=== PATIENT | male | born 1960 | race Caucasian/White ===

== ENCOUNTER 2016-07-25 09:46 | Day surgery (SDC) | payer BC ==
[2016-07-22 15:29] VITALS: BMI 30.2
[~2016-07-25 09:46] MED LIST: LACTATED RINGERS 1,000 ML IV SCH
[2016-07-25] MEDS ORDERED: LACTATED RINGERS 1,000 ML IV ONE (10:02)
[2016-07-25] MEDS ORDERED: LIDOCAINE 1% 20 ML VIAL (10MG/ML) FOR IV START INTRADERMA ONE (10:02)
[2016-07-25 10:08] VITALS: TEMP 98
[2016-07-25] MEDS ORDERED: LIDOCAINE 1% INJ 10MG/ML (20 ML MDV) ONE (10:23)
[2016-07-25] MEDS ORDERED: MIDAZOLAM 2 MG/2 ML VIAL ONE (10:23)
[2016-07-25] MEDS ORDERED: PROPOFOL 10 MG/ML 20 ML VIAL IV ONE (10:23)
--- NOTE | 2016-07-25 10:38 | P.GSHP ---
History of Present Illness H&P Date: 07/25/16 Chief Complaint: Screening colonoscopy This a 55-year-old male referred from Dr. Reggie Corona. Patient presents for screening colonoscopy. - Constitutional Constitutional: Reports as per HPI Past Medical History Past Medical History: Hypertension, Pneumonia, Seizure Disorder Additional Past Medical History / Comment(s): seizures as child, recent admission for pneumonia 05/2016, tinnitus, not currently taking BP medication- "ran out" History of Any Multi-Drug Resistant Organisms: None Reported Past Surgical History: Hernia Repair, Orthopedic Surgery, Tonsillectomy Additional Past Surgical History / Comment(s): rt knee surgery x 3(arthroscopy, ACL), thoracentesis/chest tube 06/03/16-06/09/16, inguinal hernia repair Past Anesthesia/Blood Transfusion Reactions: No Reported Reaction Past Psychological History: Anxiety Smoking Status: Former smoker Past Alcohol Use History: Occasional Additional Past Alcohol Use History / Comment(s): quit smoking 02/2015, smoked for 25 yrs, 2 PPD Past Drug Use History: Marijuana Additional Drug Use History / Comment(s): medical card for use - Past Family History Father Additional Family Medical History / Comment(s): states dad of brain aneursym. Unknown how mom Mother Family Medical History: No Reported History Medications and Allergies Home Medications Medication Instructions Recorded Confirmed Type Melatonin 5 mg PO HS PRN 07/22/16 07/25/16 History Allergies Allergy/AdvReac Type Severity Reaction Status Date / Time No Known Allergies Allergy Verified 07/22/16 14:57 Surgical - Exam Vital Signs Temp Pulse Resp BP Pulse Ox 98.0 F 89 18 154/90 98 07/25/16 10:03 07/25/16 10:03 07/25/16 10:03 07/25/16 10:03 07/25/16 10:03 - General well developed, no distress - Eyes PERRL - ENT normal pinna - Neck no masses - Respiratory normal expansion - Cardiovascular Rhythm: regular - Abdomen Abdomen: soft Assessment and Plan Plan: We'll perform screening colonoscopy.
--- NOTE | 2016-07-25 10:49 | P.OP ---
Date of Procedure: 07/25/16 Preoperative Diagnosis: Screening colonoscopy Postoperative Diagnosis: External hemorrhoids Sigmoid colon inflammation suspicious for diverticulitis biopsy pending Procedure(s) Performed: Colonoscopy Anesthesia: MAC Surgeon: Quique Correa Pathology: other (Sigmoid colon biopsied) Condition: stable Disposition: PACU Description of Procedure: Patient's placed on the endoscopy table in the lateral position. He received IV sedation. Digital rectal exam was performed which revealed external hemorrhoids. The flexible colonoscope was then placed patient anus and passed throughout the entire colon. The ileocecal valve was visualized. The cecum, ascending and transverse colon appeared normal. In the descending; there was diverticular changes. Within the sigmoid colon there is evidence of inflammation. There is mucosal erythema. This area is biopsied. It was suspicious for diverticulitis. Scope was then brought back the rectum and this appeared normal. Scope was withdrawn for patient.
[2016-07-25 10:54] VITALS: RESP 16
[2016-07-25 11:08] VITALS: BP 110/70; PULSE 79
== END 2016-07-25 11:43 | disposition home or self-care (01) ==
LOC: ORWHC2ENDO 09:46
PROVIDERS: ATTEND Surgery
DX: Z12.11 Encounter for screening for malignant neoplasm of colon (principal); K57.32 Diverticulitis of large intestine without perforation or abscess without bleeding; K64.4 Residual hemorrhoidal skin tags; Z79.899 Other long term (current) drug therapy; Z87.891 Personal history of nicotine dependence
CPT/HCPCS: 88305; 45380; J2250; J2001; J2704; 99153

== ENCOUNTER → 2022-08-13 | Outpatient (CLI) | payer BC ==
--- NOTE | 2022-08-14 07:26 | MR ---
EXAMINATION TYPE: MR knee RT wo con DATE OF EXAM: 08/13/2022 COMPARISON: Outside right knee x-ray July 29, 2022 HISTORY: Right knee pain, locking, and swelling for a couple of years after injury. History of surger y TECHNIQUE: Multiplanar, multisequence images of the knee is performed without IV contrast. FINDINGS: Marked susceptibility artifact related to surgical change makes evaluation markedly subopti mal. MEDIAL MENISCUS: Nondiagnostic evaluation. LATERAL MENISCUS: Visualized portion intact. CRUCIATE LIGAMENTS: Nondiagnostic evaluation. COLLATERAL LIGAMENTS: Visualized portion of the lateral collateral ligament complex is intact. Nondia gnostic evaluation of the medial collateral ligament EXTENSOR MECHANISM: Visualized quadriceps and patellar tendons are intact. EFFUSION: Small size suprapatellar joint effusion. POPLITEAL CYST: No obvious medium to large size popliteal/prince cyst. TRICOMPARTMENT SPACES: Moderate to severe patellofemoral compartment narrowing with mild spurring. Mi ld narrowing and spurring lateral tibiofemoral compartment. Nondiagnostic evaluation medial tibiofemo ral compartment. CARTILAGE: Chondromalacia patella with cartilaginous loss along the posterior patellar pole. BONE MARROW SIGNAL: Small areas of diminished T1 and increased T2 signal posterior aspect of the gomez lla. OTHER: No additional significant abnormality is appreciated. IMPRESSION: Markedly suboptimal study. Some structures and areas evaluated as detailed above.
== END | disposition home or self-care (01) ==
LOC: RADMRIMAIN 19:15
PROVIDERS: ATTEND Orthopaedic Surgery
DX: M22.41 Chondromalacia patellae, right knee (principal); M25.461 Effusion, right knee; M25.861 Other specified joint disorders, right knee

== ENCOUNTER → 2023-06-19 | Outpatient (CLI) | payer BC ==
--- NOTE | 2023-06-19 12:23 | CA ---
Stress Echo Report Hector Luna Age: 62 Gender: M : 1960 Exam Date: 06/19/2023 10:10 Exam Location: [place] [facility] Ht (in): 65 Wt (lb): 180 Ordering Physician: Reggie Corona MD Referring Physician: Chloe LEIJA Electric Deicer Inspector: Xiomara Haynes RDCS Technologist Procedure CPT: Indication: I10 HTN ICD-9 Codes: Rhythm: Patient History: HTN, TOB Cardiac Medications: ATENOLOL Medications in past 24 hours: Contrast: Stress Results Protocol: Jose Ramon Total dose(mL): Exercise Duration (min:sec): 5:[address] Depression (mm): Angina Score: Saldaña Score: METS: 7.1 Resting HR: 77 Resting BP: 109 / 64 Peak HR: 120 Peak BP: 210 / 86 Max Predicted HR: 159 75 % Max Predicted HR Target HR: 135 Double Product: [id number] Stress Summary: The patient's target heart rate was not achieved BP Response: Reason for Termination: Maximal effort/unable to continue Cardiac Symptoms: ECG Analysis Resting ECG: Baseline EKG shows sinus rhythm normal axis normal intervals Stress ECG: Patient exercised on Jose Ramon protocol for 6 minutes achieving 75% of predicted maximal heart rate without chest pain or diagnostic ST segment depression Arrhythmia: Echo Analysis Resting Echo: Normal left ventricle a size wall motion systolic function Peak Echo Analysis: Normal hyperdynamic response MEASUREMENTS (Male/Female) Normal Values CONCLUSIONS Average exercise tolerance Inconclusive stress echo due to name related to attain target heart rate Dr. Micheal Garcia MD (Electronically Signed) Final Date: 19 June 2023 12:22
== END | disposition home or self-care (01) ==
LOC: RADNMMAIN 09:44
PROVIDERS: ATTEND Family Medicine
DX: I10 Essential (primary) hypertension (principal); R94.39 Abnormal result of other cardiovascular function study
CPT/HCPCS: 93351

== ENCOUNTER → 2023-08-24 | Outpatient (CLI) | payer BC ==
--- NOTE | 2023-08-24 12:19 | CT ---
EXAMINATION TYPE: CT wrist LT wo con DATE OF EXAM: 08/24/2023 COMPARISON: None HISTORY: left wrist pain CT DLP: 162.3 mGycm Automated exposure control for dose reduction was used. Unenhanced CT of the left wrist was performed with bone and soft tissue window settings submitted. FINDINGS: There is vertically oriented fracture involving the distal radius with intra-articular extension at t he level of the scaphoid. Additional smaller intra-articular component is seen more medially. There i s fracture depression of 1.3 mm displacement of 1 mm. No additional fractures are seen. Soft tissue s welling noted. Mild degenerative narrowing radiocarpal joint space and intercarpal joint space. IMPRESSION: DISTAL RADIAL FRACTURES WITH INTRA-ARTICULAR EXTENSION IS NOTED.
== END | disposition home or self-care (01) ==
LOC: RADCTMAIN 11:37
PROVIDERS: ATTEND Orthopaedic Surgery Hand Surgery
DX: M65.842 Other synovitis and tenosynovitis, left hand (principal); S52.572D Other intraarticular fracture of lower end of left radius, subsequent encounter for closed fracture with routine healing; X58.XXXD Exposure to other specified factors, subsequent encounter